=== PATIENT | female | born 1990 | race African-American/Black ===

== ENCOUNTER 2016-04-28 21:05 | Emergency (ER) | payer SELFPAY ==
[2016-04-28 21:15] VITALS: BMI 28.8
--- NOTE | 2016-04-28 21:45 | DR.GENAD ---
HPI - PCP Primary Care Physician: NFD - Complaint/Symptoms Chief Complaint:: VAGINAL MUCOUS BACK IS HURTING REALLY BAD, SMALL AMOUNT OF SPOTTING VOMITING ALL DAY. PATIENT STATES, " I'M ABOUT 12 WEEKS ." - Source History Provided: Patient - Mode of Arrival Mode of Arrival: Ambulatory - Timing Onset of Chief Complaint: 04/27/16 PMH - PMH Past Medical History: No Past Surgical History: No - Family History History of Family Medical Conditions: Yes Family Medical History: Hypertension - Social History Does patient currently use any type of tobacco product: No Have you used tobacco products in the last 12 months: No Type of Tobacco Use: None Does any household member use tobacco: No Alcohol Use: None Do you use any recreational Drugs:: No Lives With: Alone Lives Where: Home - infectious screening In the last 2 months have you had wt loss of >10#?: YES Have you had fever, night sweats or hemotysis?: No Have you traveled outside the country in the last 6 months?: No Isolation: Standard ROS - Review of Systems Constitutional: No Symptoms Reported Eyes: No Symptoms Reported ENTM: No Symptoms Reported Respiratoy: No Symptoms Reported Cardiovascular: No Symptoms Reported Gastrointestinal/Abdominal: Abdominal Pain Neurological: No Symptoms Reported Musculoskeletal: No Symptoms Reported Integumentary: No Symptoms Reported Hematologic/Lymphatic: No Symptoms Reported Endocrine: No Symptoms Reported Psychiatric: No Symptoms Reported PE - Vital Signs Vitals: Temperature 98.8 F Pulse Rate 81 Respiratory Rate 18 Blood Pressure [Right Arm] 124/91 Blood Pressure 116/73 O2 Sat by Pulse Oximetry 100 - General Limitations: No Limitations General Appearance: Alert, In No Apparent Distress - Head Head Exam: Normal Inspection, Atraumatic - Eyes Eye exam: Normal Appearance, PERRL, EOMI - ENT ENT Exam: Normal Exam, Normal Oropharynx External Ear Exam: Normal External Inspection TM/Canal Exam: Bilateral Normal Nose Exam: Normal Nose Exam Mouth Exam: Normal Inspection Throat Exam: Normal Inspection - Neck Neck Exam: Normal Inspection - Chest Chest Inspection: Normal Inspection - Respiratory Respiratory Exam: Normal Lung Sounds Bilat Respiratory Exam: Bilateral Clear to Auscultation - Cardiovascular Cardiovascular Exam: Regular Rate - Abdominal Exam Abdominal Exam: Normal Inspection Abdominal Tenderness: negative: RUQ, RLQ, LUQ, LLQ, Epigastrium, Suprapubic, Diffuse, Mild, Moderate, Severe, Other - Extremities Extremities Exam: Normal Inspection. negative: Edema, Joint Swelling - Back Back Exam: Normal Inspection - Neurologic Neurological Exam: Alert, Oriented X3, CN II-XII Intact - Psychiatric Psychiatric Exam: Normal Affect, Normal Mood - Skin Skin Exam: Warm, Dry, Intact ROR - Labs Reviewed Laboratory: HCG, Qual Positive >10 mIU/mL 04/28/16 22:17 - XRAY XRAY Interpreted by: Radiologist (Transabdominal US: There is a single intrauterine fetus. The placenta is anteriorly located. heart rate is 142 beats per min. The ovaries appear unremarkable. Stentor measurements were obtained in correlate with a 12 week 4 day gestational age. No evidence of hemorrhage. Conclusion: Normal single intrauterine fetus.) - Diagnosis Discharge Problem: Nausea Qualifiers: Weeks of gestation: 12 weeks Qualified Code(s): Z3A.12 - 12 weeks gestation of - Discharge Plan Condition: Stable - Follow ups/Referrals Follow ups/Referrals: NFD,None [Primary Care Provider] - 3 days - Instructions
[2016-04-28 22:32] LABS: SERUM PREGNANCY TEST, QUAL POSITIVE >10 mIU/mL
--- NOTE | 2016-04-28 23:56 | US ---
Exam: Transabdominal pelvic ultrasound History: Abdominal pain, Comparison: No prior ultrasound for comparison Technique: Grayscale, color, and power Doppler imaging of the pelvis was performed using a transabdo dee approach. Findings: There is a single intrauterine fetus. The placenta is anteriorly located. heart rat e is 142 beats per min. The ovaries appear unremarkable. Stentor measurements were obtained in corre late with a 12 week 4 day gestational age. No evidence of hemorrhage. Conclusion: Normal single intrauterine fetus. Reported By:
[2016-04-29 00:23] LABS: BILIRUBIN,URINE NEGATIVE (NEGATIVE); BLOOD/HEMOGLOBIN,URINE NEGATIVE (NEGATIVE); GLUCOSE, URINE NEGATIVE (NEGATIVE); KETONES,URINE 1+ (NEGATIVE); LEUKOCYTE ESTERASE ,URINE NEGATIVE (NEGATIVE); NITRITES,URINE NEGATIVE (NEGATIVE); PROTEIN,URINE NEGATIVE (NEGATIVE); UROBILINOGEN,URINE NORMAL (NORMAL)
[2016-04-29] MEDS ORDERED: ZOFRAN SYRUP 4 MG UDC PO ONE (00:25)
[2016-04-29] MEDS ORDERED: ZOFRAN SYRUP 4 MG UDC ONE (00:34)
[2016-04-29 00:37] LABS: APPEARANCE,URINE CLEAR (CLEAR); BACTERIA,URINE NEGATIVE /HPF (NEGATIVE); COLOR,URINE YELLOW (YELLOW); RBC,URINE 0-3 /HPF (NEGATIVE); SQUAMOUS EPITHELIAL CELL,UR FEW /HPF (NEGATIVE)
[2016-04-29 01:07] VITALS: BP 117/83
== END 2016-04-29 01:05 | disposition home or self-care (01) ==
LOC: ER 21:19
DX: R11.0 Nausea (principal); Z3A.12 12 weeks gestation of pregnancy
CPT/HCPCS: 36415; 76801; 81001; 84703; 99284; Q0162

== ENCOUNTER 2016-08-12 00:51 | Emergency (ER) | payer OTHER ==
[2016-08-12 00:57] VITALS: BP 131/88; BMI 29.8
[2016-08-12 01:59] LABS: BILIRUBIN,URINE NEGATIVE (NEGATIVE); BLOOD/HEMOGLOBIN,URINE 1+ (NEGATIVE); GLUCOSE, URINE NEGATIVE (NEGATIVE); KETONES,URINE NEGATIVE (NEGATIVE); LEUKOCYTE ESTERASE ,URINE 1+ (NEGATIVE); NITRITES,URINE NEGATIVE (NEGATIVE); PH,URINE 6.5 (5.0 - 8.0); PROTEIN,URINE NEGATIVE (NEGATIVE); UROBILINOGEN,URINE NORMAL (NORMAL)
[2016-08-12 02:03] LABS: APPEARANCE,URINE CLEAR (CLEAR); BACTERIA,URINE TRACE /HPF (NEGATIVE); COLOR,URINE YELLOW (YELLOW); MUCUS,URINE FEW /HPF (NEGATIVE); RBC,URINE 0-3 /HPF (NEGATIVE); SQUAMOUS EPITHELIAL CELL,UR RARE /HPF (NEGATIVE)
[2016-08-12] MEDS ORDERED: MACROBID CAP 100 MG EXT REL PO ONE ×2 (02:07→02:08)
== END 2016-08-12 02:19 | disposition home or self-care (01) ==
LOC: ER 00:51
DX: R10.84 Generalized abdominal pain (principal); Z3A.23 23 weeks gestation of pregnancy
CPT/HCPCS: 81001; 99283; 99284

== ENCOUNTER 2018-09-01 19:20 | Inpatient (IN) ==
[~2018-09-01 19:20] MED LIST: PITOCIN IVP ONE
[2018-09-01] MEDS: D5 1/2 NS 1000 ML 1,000 ML with PITOCIN 20 UNITS IV SCH ×2 (19:20)
[2018-09-01] MEDS ORDERED: PHENERGAN INJ 25 MG IM PRN (20:29)
[2018-09-01 20:38] LABS: BASOPHILS % (AUTO) 0.2 % (0.2-1.0); EOSINOPHILS % (AUTO) 0.5 % (0.9-2.9); HEMOGLOBIN 10.5 g/dL (12.0-16.0); LYMPHOCYTES # (AUTO) 1.2 X10^3/uL (1.3-2.9); LYMPHOCYTES % (AUTO) 14.2 % (21.0-51.0); MEAN CORPUSCULAR HEMOGLOBIN 27.8 pg (27.0-34.0); MEAN CORPUSCULAR HGB CONC 33.9 g/dL (33.0-35.0); MEAN CORPUSCULAR VOLUME 81.9 fL (80.0-100.0); MEAN PLATELET VOLUME 8.2 fL (7.4-11.0); MONOCYTES # (AUTO) 0.6 x10^3/uL (0.3-0.8); MONOCYTES % (AUTO) 6.5 % (0.0-13.0); NEUTROPHILS # (AUTO) 6.9 x10^3/uL (2.2-4.8); NEUTROPHILS % (AUTO) 78.6 % (42.0-75.0); PLATELET COUNT 249 X10^3/uL (150.0-450.0); RED BLOOD COUNT 3.78 X10^6/uL (3.5-5.4); RED CELL DISTRIBUTION WIDTH 14.3 % (11.6-16.5); WHITE BLOOD COUNT 8.8 X10^3/uL (3.6-10.0)
[2018-09-01 20:49] LABS: BLOOD UREA NITROGEN 6 mg/dL (7-18); CARBON DIOXIDE 23.5 mmol/L (21-32); CHLORIDE 100 mmol/L (98-107); COR NA(FOR HYPERGLY) 135 mmol/L (136-145); CREATININE 0.57 mg/dL (0.55-1.02); SODIUM 134 mmol/L (136-145); eGFR NON BLACK RACES > 60 (>60)
[2018-09-01] MEDS ORDERED: AMBIEN PO PRN (20:54)
[2018-09-01] MEDS ORDERED: MILK OF MAGNESIA PO PRN (20:54)
[2018-09-01] MEDS: ZANTAC PO SCH (21:55)
[2018-09-01] MEDS: MOTRIN TAB 800 MG PO PRN (22:51)
[2018-09-01] MEDS: DERMOPLAST SPRAY TOP PRN (23:30)
[2018-09-02 05:09] LABS: HEMATOCRIT 28.1 % (36.0-47.0); HEMOGLOBIN 9.6 g/dL (12.0-16.0)
[2018-09-02] MEDS: D5 1/2 NS 1000 ML 1,000 ML with PITOCIN 20 UNITS IV SCH ×4 (05:29→21:28)
[2018-09-02] MEDS: MOTRIN TAB 800 MG PO PRN ×3 (06:15→23:10)
[2018-09-02] MEDS: PRENATAL PLUS PO SCH (10:15)
[2018-09-02] MEDS: ZANTAC PO SCH ×2 (12:32→21:28)
[2018-09-02] MEDS: DERMOPLAST SPRAY TOP PRN (21:29)
[2018-09-03] MEDS: D5 1/2 NS 1000 ML 1,000 ML with PITOCIN 20 UNITS IV SCH ×2 (06:05)
[2018-09-03] MEDS: MOTRIN TAB 800 MG PO PRN (09:00)
[2018-09-03] MEDS: PRENATAL PLUS PO SCH (09:00)
[2018-09-03] MEDS: ZANTAC PO SCH (09:00)
[2018-09-03 14:09] VITALS: BP 129/59
== END 2018-09-03 14:01 | disposition home or self-care (01) | DRG 776 ==
LOC: LD 20:03 → MED/SURG 20:51
PROVIDERS: ADMIT Obstetrics & Gynecology Obstetrics; ATTEND Obstetrics & Gynecology Obstetrics
DX: O62.3 Precipitate labor; Z39.0 Encounter for care and examination of mother immediately after delivery
CPT/HCPCS: 36415; 80048; 85014; 85018; 85025; 86592; 86850; 86900; 86901; A4216; S0197; J2590; S5010